=== PATIENT | male | born 1945 | race Caucasian/White ===

== ENCOUNTER → 2019-01-14 | Outpatient (CLI) | payer MEDICARE ==
--- NOTE | 2019-01-14 15:39 | PCVCIMAG ---
EXAM: BILATERAL LOWER EXTREMITY ARTERIAL DUPLEX INDICATION: Peripheral Arterial Disease. Leg pain. FINDINGS: Right Leg: Common femoral and profunda femoral arteries are patent. Superficial femoral and popliteal artery are patent including previous stent distal superficial femoral artery. Mid/distal anterior tibial artery is occluded. 80% stenosis proximal posterior tibial artery. Peroneal artery is patent. Left Leg: Common femoral profunda femoral arteries are patent. 60% stenosis distal [place] left superficial femoral artery. Popliteal artery is patent. Mid/distal anterior tibial artery is occluded. 70% stenosis origin peroneal artery. Posterior tibial artery is patent. IMPRESSION: Previous distal right superficial femoral artery stent maintaining good patency. 80% stenosis proximal right posterior tibial artery. 60% stenosis distal [place] left superficial femoral artery. 70% stenosis origin left peroneal artery. 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 LOC:[place] [id number]
== END | disposition home or self-care (01) ==
LOC: PCVCIMAG 13:41
PROVIDERS: ATTEND Internal Medicine
DX: I73.9 Peripheral vascular disease, unspecified (principal); L97.409 Non-pressure chronic ulcer of unspecified heel and midfoot with unspecified severity; I25.10 Atherosclerotic heart disease of native coronary artery without angina pectoris; I10 Essential (primary) hypertension; E11.9 Type 2 diabetes mellitus without complications; Z79.4 Long term (current) use of insulin
CPT/HCPCS: 93925